=== PATIENT | female | born 1985 | race Caucasian/White ===

== ENCOUNTER 2017-01-15 18:12 | Emergency (ER) | payer OTHER ==
--- NOTE | ~2017-01-15 | EKG ---
PATIENT: JONNY HARGROVE UNIT #: [id number] Ventricular Rate: 91 BPM Atrial Rate: 91 BPM P-R Interval: 150 ms QRS Duration: 80 ms Q-T Interval: 352 ms QTC Calculation(Bezet): 432 ms P [place]: 67 degrees Calculated R [place]: 49 degrees Calculated T [place]: 57 degrees Diagnosis Line: Normal sinus rhythm Diagnosis Line: Normal ECG Diagnosis Line: No previous ECGs available Diagnosis Line: Confirmed by HELENE MILAN MD ([id number]) on 01/15/2017 Diagnosis Line: 10:37:22 PM INTERPRETING MD: BJORN FRITZ
--- NOTE | ~2017-01-15 | CR72 ---
[facility] A Service of [facility] RADIOLOGY TEXT RESULTS PATIENT: JONNY HARGROVE LOCATION: [place] : 87 UNIT #: [id number] AGE: [address]: Nancy Allen SEX: F ORDER DR: [id number] [facility] [address], [place] [address] [id number] E MR#: [id number] Acc #: [id number] NAME: JONNY HARGROVE : 1985 SEX: F STUDY DATE/TIME: 01/15/2017 17:56 UNIT: [facility] ROOM: STUDY DESCRIPTION: CR Chest Single View Portable Attending Physician: Nancy Allen Pa-C Ordering Physician: Nancy Allen Pa-C Primary Care Physician: No Primary Care Physician MEDICAL IMAGING REPORT This report is preliminary unless electronic signature is present EXAM Single view chest, 01/05/17 COMPARISON STUDIES None HISTORY Heartburn, chest pain and shortness of air for 2 days FINDINGS Single view of the chest was obtained. FINDINGS A single AP portable view of the chest shows both lungs to be clear. The heart is normal in size. The mediastinal contour is normal. No significant bone abnormalities are seen. IMPRESSION Normal portable chest. Dictated by... Zainab Stearns M.D. THIS IS AN ELECTRONICALLY VERIFIED REPORT Zainab Stearns M.D. at 01/17/2017 3:03 PM CPR/ea TD: 01/15/2017 22:24 JOB #: [id number] [facility] A Service of [facility] RADIOLOGY TEXT RESULTS PATIENT: JONNY HARGROVE LOCATION: [facility] : [birth year] UNIT #: [id number] AGE: [address]: Nancy Allen SEX: F ORDER DR: MEDICAL IMAGING REPORT Page 1 of 1 COPY
[2017-01-15 17:52] LABS: BASOPHIL% 0.7 % (0-2.5); EOSINOPHIL# 0.1 X10e3 (0-0.7); HEMATOCRIT 41.4 % (35.0-45.0); HEMOGLOBIN 13.8 gm/dL (12.0-16.0); LYMPHOCYTE# 1.6 X10e3 (1.0-3.5); MEAN CELL VOLUME 90.9 FL (83-96); MEAN CORPUSCULAR HEMOGLOBIN 30.3 PG (28-34); MEAN CORPUSCULAR HGB CONC 33.3 g/dL (30-36); MEAN PLATELET VOLUME 8.6 FL (6.5-11.5); MONOCYTE# 0.5 X10e3 (0-1.0); MONOCYTE% 8.4 % (3.0-12.0); NEUTROPHIL# 3.8 X10e3 (1.5-7.1); NEUTROPHIL% 62.9 % (40-75); PLATELET COUNT 202 X10e3 (140-420); RED BLOOD COUNT 4.55 X10e (3.90-5.30); RED CELL DISTRIBUTION WIDTH 13.5 % (11.0-15.5)
[2017-01-15 17:55] LABS: DIFF IND NO
[2017-01-15 18:08] LABS: URINE SOURCE CLEAN CATCH
[~2017-01-15 18:12] MED LIST: BCP; FLEXERIL PO; FLOVENT HFA12 GM INH; IBUPROFEN PO
[2017-01-15 18:19] LABS: URINE APPEARANCE CLEAR; URINE BILIRUBIN NEG (NEG); URINE BLOOD 1+ (NEG); URINE COLOR DK YELLOW; URINE GLUCOSE NEG (NEG); URINE KETONE TRACE (NEG); URINE LEUKOCYTE ESTERASE 2+ (NEG); URINE NITRATE NEG (NEG); URINE PROTEIN NEG (NEG); URINE SPECIFIC GRAVITY 1.029 (1.003-1.035)
[2017-01-15 18:22] LABS: CULTURE INDICATED? YES; URBCS1 AUWI 0-2 /[HPF] (0-2); URINE BACTERIA AUWI 2+ (NEGATIVE); URINE SQUAMOUS EPITHELIAL CELL MOD /[HPF]
[2017-01-15 18:32] LABS: ALBUMIN SERUM 4.5 g/dL (3.5-5.0); BILIRUBIN,TOTAL 1.2 mg/dL (0.2-2.0); BUN/CREATININE RATIO 13.75; CALCIUM SERUM 10.4 mg/dL (8.4-10.2); CREATININE SERUM 0.8 mg/dL (0.6-1.4); POTASSIUM 3.6 mmol/L (3.5-5.1); PROTEIN TOTAL SERUM 8.3 g/dL (6.0-8.3)
[2017-01-15 18:51] LABS: %MB 1.1 % (0.0-4.0); MB 2.3 ng/ml
== END 2017-01-15 19:12 | disposition home or self-care (01) ==
LOC: CFTX 18:12
PROVIDERS: Physician Assistant Medical
DX: R10.13 Epigastric pain (principal); Z88.0 Allergy status to penicillin; Z88.1 Allergy status to other antibiotic agents; Z88.8 Allergy status to other drugs, medicaments and biological substances
CPT/HCPCS: 71010; 80053; 81003; 82150; 82550; 82553; 84484; 84703; 85025; 87086; 93005; 96374; 99284; C9113

== ENCOUNTER 2017-04-09 07:40 | Emergency (ER) | payer OTHER ==
[~2017-04-09] VITALS: Ht 154.9 cm; Wt 81.6 kg
--- NOTE | ~2017-04-09 | CR181 ---
[facility] A Service of [facility] & [facility] RADIOLOGY TEXT RESULTS PATIENT: JONNY HARGROVE LOCATION: [facility] : 87 UNIT #: [id number] AGE: [address]: Mar Kincaid SEX: F ORDER DR: [id number] [facility] [address] [place], [place] [address] [id number] E MR#: [id number] Acc #: [id number] NAME: JONNY HARGROVE : 1985 SEX: F STUDY DATE/TIME: 04/09/2017 8:16 UNIT: [facility] ROOM: STUDY DESCRIPTION: CR Lumbar Spine 2 or 3 Views Attending Physician: Mar Kincaid P.A.-C. Ordering Physician: Mar Kincaid P.A.-C. Primary Care Physician: Primary Care Physician No MEDICAL IMAGING REPORT This report is preliminary unless electronic signature is present EXAM Lumbar spine, 04/09/2017 HISTORY 32-year-old woman, low back pain past 2 weeks. Patient indicates back pain related to moving boxes. FINDINGS AP and lateral lumbar spine views demonstrate normal lumbar alignment and curvature. Vertebral body heights and disc spaces are preserved. Posterior elements are intact. IMPRESSION Negative lumbar spine. Dictated by... Melvin Hodge M.D. THIS IS AN ELECTRONICALLY VERIFIED REPORT Melvin Hodge M.D. at 04/09/2017 2:39 PM Cassie TD: 04/09/2017 12:42 JOB #: [id number] MEDICAL IMAGING REPORT Page 1 of 1 COPY
[2017-04-09 07:53] LABS: URINE SOURCE CLEAN CATCH
[2017-04-09 07:59] LABS: URINE APPEARANCE CLEAR; URINE BILIRUBIN NEG (NEG); URINE BLOOD NEG (NEG); URINE COLOR YELLOW; URINE GLUCOSE NEG (NEG); URINE KETONE NEG (NEG); URINE LEUKOCYTE ESTERASE TRACE (NEG); URINE NITRATE NEG (NEG); URINE PROTEIN NEG (NEG); URINE SPECIFIC GRAVITY 1.009 (1.003-1.035); URINE UROBILINOGEN 0.2 MG/DL (NEG)
[2017-04-09 08:02] LABS: CULTURE INDICATED? NO; URBCS1 AUWI 0-2 /[HPF] (0-2); URINE BACTERIA AUWI NEG (NEGATIVE); URINE SQUAMOUS EPITHELIAL CELL NONE SEEN /[HPF]
== END 2017-04-09 09:02 | disposition home or self-care (01) ==
LOC: CED 07:40 → CFTX 07:40
PROVIDERS: Physician Assistant
DX: S33.5XXA Sprain of ligaments of lumbar spine, initial encounter (principal); J45.909 Unspecified asthma, uncomplicated; Z87.891 Personal history of nicotine dependence; Z88.0 Allergy status to penicillin; Z88.1 Allergy status to other antibiotic agents; Z88.8 Allergy status to other drugs, medicaments and biological substances; X50.9XXA Other and unspecified overexertion or strenuous movements or postures, initial encounter; Y92.9 Unspecified place or not applicable
CPT/HCPCS: 72100; 81003; 96372; 99283; J1885

== ENCOUNTER → 2017-04-17 | Outpatient (CLI) | payer OTHER ==
--- NOTE | ~2017-04-17 | CR258 ---
[facility] A Service of [facility] & [facility] RADIOLOGY TEXT RESULTS PATIENT: JONNY HARGROVE LOCATION: [facility] : [birth year] UNIT #: [id number] AGE: [address]: BRIANA MURILLO APR SEX: F ORDER DR: [id number] [facility] [address] [place], [place] [address] [id number] O MR#: [id number] Acc #: [id number] NAME: JONNY HARGROVE : 1985 SEX: F STUDY DATE/TIME: 04/17/2017 15:28 UNIT: [facility] ROOM: STUDY DESCRIPTION: CR Toe 2 Views 4Th Lt Attending Physician: Briana Murillo Aprn Referring Physician: Briana Murillo Aprn Ordering Physician: Briana Mruillo Aprn Primary Care Physician: Briana Murillo Aprn MEDICAL IMAGING REPORT This report is preliminary unless electronic signature is present EXAM Left fourth toe 2 views 04/17/2017 HISTORY Left fourth toe pain for 2 months with no known injury. FINDINGS Two views of the left fourth toe demonstrate no fracture. The bones are normally mineralized. There is no soft tissue abnormality. IMPRESSION Negative left fourth toe. Dictated by... Manoj Sifuentes M.D. THIS IS AN ELECTRONICALLY VERIFIED REPORT Manoj Sifuentes M.D. at 04/18/2017 2:18 PM ANAMARIA/cecelia TD: 04/18/2017 08:00 JOB #: [id number] MEDICAL IMAGING REPORT Page 1 of 1 COPY
--- NOTE | ~2017-04-17 | CR170 ---
[facility] A Service of [facility] & [facility] RADIOLOGY TEXT RESULTS PATIENT: JONNY HARGROVE LOCATION: [facility] : 87 UNIT #: [id number] AGE: [address]: BRIANA MURILLO APR SEX: F ORDER DR: [id number] [facility] [place] [facility] [address] [place], [place] [address] [id number] O MR#: [id number] Acc #: [id number] NAME: JONNY HARGROVE : 1985 SEX: F STUDY DATE/TIME: 04/17/2017 15:28 UNIT: [facility] ROOM: STUDY DESCRIPTION: CR Knee 2 Views Rt Attending Physician: Briana Murillo Aprn Referring Physician: Briana Murillo Aprn Ordering Physician: Briana Murillo Aprn Primary Care Physician: Briana Murillo Aprn MEDICAL IMAGING REPORT This report is preliminary unless electronic signature is present EXAM Right knee 2 views 04/17/2017 HISTORY Right knee pain for 30 years. No known injury. FINDINGS AP and lateral projection of the knee shows smooth articular anatomy without indication of fracture or dislocation at the major weight-bearing surface of the knee. There is no indication of radiopaque foreign body about the knee surface or joint effusion. IMPRESSION Normal knee. Dictated by... Manoj Sifuentes M.D. THIS IS AN ELECTRONICALLY VERIFIED REPORT Manoj Sifuentes M.D. at 04/18/2017 2:18 PM KRT/pcl TD: 04/17/2017 23:07 JOB #: [id number] MEDICAL IMAGING REPORT Page 1 of 1 COPY
== END | disposition home or self-care (01) ==
LOC: CRAD 15:07
DX: M25.561 Pain in right knee (principal); M79.675 Pain in left toe(s)
CPT/HCPCS: 73560; 73660